=== PATIENT | female | born 1990 | race Two or more races ===

== ENCOUNTER 2020-10-03 17:08 | Emergency (ER) | payer MEDICAID ==
[~2020-10-03] VITALS: Ht 160 cm; Wt 61.4 kg
[2020-10-03 17:10] VITALS: BP 109/59
== END 2020-10-03 17:53 | disposition home or self-care (01) ==
LOC: EMS 17:12
DX: L03.211 Cellulitis of face (principal)
CPT/HCPCS: 99283; Z7502